=== PATIENT | male | born 1945 | race Hispanic/Latino ===

== ENCOUNTER 2017-12-26 09:32 | Emergency (ER) | payer MEDICARE ==
[~2017-12-26] VITALS: Ht 175.3 cm; Wt 83.0 kg
[2017-12-26 10:39] LABS: BASOPHILS # (AUTO) 0.1 (0.0-0.1); BASOPHILS % 0.7 % (0.0-1.0); EOSINOPHILS # (AUTO) 0.2 (0.0-0.4); HEMATOCRIT 42.7 % (38.2-49.6); HEMOGLOBIN 14.5 g/dL (14.0-18.0); LYMPHOCYTES # (AUTO) 1.8 (1.0-3.2); LYMPHOCYTES % 19.7 % (18.0-39.1); MEAN CORPUSCULAR HEMOGLOBIN 30.5 pg (28-32); MEAN CORPUSCULAR VOLUME 89.7 fL (81-99); MONOCYTES # (AUTO) 0.8 (0.2-0.8); MONOCYTES % 8.4 % (4.4-11.3); NEUTROPHILS # (AUTO) 6.2 (2.1-6.9); NEUTROPHILS % 68.8 % (38.7-80.0); PLATELET COUNT 220 x10e3/uL (140-360); RED BLOOD COUNT 4.76 x10e6/uL (4.3-5.7); RED CELL DISTRIBUTION WIDTH 12.1 % (11.7-14.4)
[2017-12-26] MEDS ORDERED: FISH OIL 1,0001 EAC3 PO (10:50)
[2017-12-26] MEDS ORDERED: LOSARTAN POTASS25 MG PO (10:50)
[2017-12-26] MEDS ORDERED: METFORMIN HCL500 MG PO (10:50)
[2017-12-26] MEDS ORDERED: JANUVIA100 MG PO (10:50)
[2017-12-26] MEDS ORDERED: ATORVASTATIN CA10 MG PO (10:50)
[2017-12-26] MEDS ORDERED: ASPIRIN325 MG PO (10:50)
[2017-12-26 10:51] LABS: INR 0.99; PROTHROMBIN TIME 12.3 seconds (11.9-14.5)
[2017-12-26 10:52] LABS: PARTIAL THROMBOPLASTIN TIME 27.5 seconds (23.8-35.5)
[2017-12-26 11:01] LABS: ALANINE AMINOTRANSFERASE 25 IU/L (0-55); ALBUMIN 4.2 g/dL (3.5-5.0); ALBUMIN/GLOBULIN RATIO 1.2 (0.8-2.0); ALKALINE PHOSPHATASE 95 IU/L (40-150); AMYLASE 109 U/L (25-125); ANION GAP 13.9 mmol/L (8-16); BLOOD UREA NITROGEN 15 mg/dL (7-26); BUN/CREATININE RATIO 14 (6-25); CARBON DIOXIDE 25 mmol/L (22-29); CHLORIDE 105 mmol/L (98-107); CREATINE KINASE 57 IU/L (30-200); CREATININE, SERUM 1.05 mg/dL (0.72-1.25); EST GLOMERULAR FILTRATION RATE > 60 ML/MIN (60-); GLUCOSE 110 mg/dL (74-118); LIPASE 52 U/L (8-78); POTASSIUM 3.9 mmol/L (3.5-5.1); SODIUM 140 mmol/L (136-145)
--- NOTE | 2017-12-26 11:08 | Diagnostic Imaging Report ---
PROCEDURE: A single AP view of the chest. COMPARISON: None. INDICATIONS: EPIGASTRIC DISCOMFORT FINDINGS: Lines/tubes: None. Lungs: Low lung volumes. Mild patchy bibasilar opacities, likely atelectasis. There is no evidence of pneumonia or pulmonary edema. Pleura: There is no pleural effusion or pneumothorax. Heart and mediastinum: The cardiomediastinal silhouette is unremarkable. Bones: No acute bony abnormality. Upper abdomen: No evidence of free air under the hemidiaphragms. IMPRESSION: No acute cardiopulmonary disease. Dictated by: DENISA DEL RIO M.D. on 12/26/2017 at 11:14 Electronically approved by: DENISA DEL RIO M.D. on 12/26/2017 at 11:14
[2017-12-26] MEDS ORDERED: LIDOCAINE VISC 2% SOLN 15 ML UDC PO ONE (11:15)
[2017-12-26] MEDS ORDERED: MAGNESIUM/ALUMINUM/SIMETHICONE 30 ML UDC PO ONE (11:15)
[2017-12-26 13:50] LABS: CREATINE KINASE MB < 1.00 ng/mL (0-4.3)
== END 2017-12-26 14:42 | disposition home or self-care (01) ==
LOC: ER 09:32
DX: R10.13 Epigastric pain (principal); R07.89 Other chest pain; I10 Essential (primary) hypertension; E11.9 Type 2 diabetes mellitus without complications
CPT/HCPCS: 36415; 71045; 80053; 82150; 82550; 82553; 83690; 84484; 85025; 85610; 85730; 93005; 99284

== ENCOUNTER 2020-05-11 22:32 | Emergency (ER) | payer MEDICARE ==
[~2020-05-11] VITALS: Ht 177.8 cm; Wt 86.2 kg
[~2020-05-11 22:32] MED LIST: ASPIRIN325 MG PO; ATORVASTATIN CA10 MG PO; FISH OIL 1,0001 EAC3 PO; JANUVIA100 MG PO; LOSARTAN POTASS25 MG PO; METFORMIN HCL500 MG PO
[2020-05-11 22:53] LABS: BASOPHILS # (AUTO) 0.1 (0.0-0.1); BASOPHILS % 0.6 % (0.0-1.0); EOSINOPHILS # (AUTO) 0.3 (0.0-0.4); EOSINOPHILS % 2.7 % (0.0-6.0); HEMATOCRIT 37.3 % (38.2-49.6); HEMOGLOBIN 12.7 g/dL (14.0-18.0); LYMPHOCYTES # (AUTO) 1.7 (1.0-3.2); LYMPHOCYTES % 18.1 % (18.0-39.1); MEAN CORPUSCULAR HEMOGLOBIN 30.5 pg (28-32); MEAN CORPUSCULAR VOLUME 89.4 fL (81-99); MONOCYTES # (AUTO) 0.7 (0.2-0.8); MONOCYTES % 7.8 % (4.4-11.3); NEUTROPHILS # (AUTO) 6.6 (2.1-6.9); NEUTROPHILS % 70.3 % (38.7-80.0); PLATELET COUNT 200 x10e3/uL (140-360); RED BLOOD COUNT 4.17 x10e6/uL (4.3-5.7); RED CELL DISTRIBUTION WIDTH 11.9 % (11.7-14.4)
[2020-05-11] MEDS ORDERED: ASPIRIN 81 MG CHEW TAB PO ONE (23:00)
[2020-05-11 23:12] LABS: ALANINE AMINOTRANSFERASE 19 IU/L (0-55); ALBUMIN 3.7 g/dL (3.5-5.0); ALBUMIN/GLOBULIN RATIO 1.2 (0.8-2.0); ALKALINE PHOSPHATASE 73 IU/L (40-150); ANION GAP 12.2 mmol/L (8-16); BLOOD UREA NITROGEN 19 mg/dL (7-26); BUN/CREATININE RATIO 20 (6-25); CALCIUM 8.4 mg/dL (8.4-10.2); CARBON DIOXIDE 25 mmol/L (22-29); CHLORIDE 104 mmol/L (98-107); CREATINE KINASE 46 IU/L (30-200); CREATININE, SERUM 0.95 mg/dL (0.72-1.25); EST GLOMERULAR FILTRATION RATE > 60 ML/MIN (60-); GLUCOSE 182 mg/dL (74-118); POTASSIUM 4.2 mmol/L (3.5-5.1); SODIUM 137 mmol/L (136-145)
[2020-05-11 23:49] VITALS: BP 143/86
== END 2020-05-11 23:45 | disposition home or self-care (01) ==
LOC: ER 22:49
DX: I10 Essential (primary) hypertension (principal); R42 Dizziness and giddiness; E11.65 Type 2 diabetes mellitus with hyperglycemia; E78.5 Hyperlipidemia, unspecified
CPT/HCPCS: 36415; 80053; 82550; 82553; 84484; 85025; 93005; 99283

== ENCOUNTER 2021-04-17 09:55 | Observation (INO) | payer MEDICARE ==
[~2021-04-17] VITALS: Ht 177.8 cm; Wt 86.2 kg
[2021-04-17] MEDS: FAMOTIDINE 20 MG/2 ML VIAL IV SCH ×2 (00:45→12:08)
[2021-04-17 10:30] LABS: BASOPHILS # (AUTO) 0.1 (0.0-0.1); BASOPHILS % 0.5 % (0.0-1.0); EOSINOPHILS # (AUTO) 0.1 (0.0-0.4); EOSINOPHILS % 1.4 % (0.0-6.0); HEMATOCRIT 42.3 % (38.2-49.6); HEMOGLOBIN 14.1 g/dL (14.0-18.0); LYMPHOCYTES % 21.6 % (18.0-39.1); MEAN CORPUSCULAR HEMOGLOBIN 30.7 pg (28-32); MEAN CORPUSCULAR HGB CONC 33.3 g/dL (31-35); MEAN CORPUSCULAR VOLUME 92.2 fL (81-99); MONOCYTES # (AUTO) 0.7 (0.2-0.8); MONOCYTES % 7.7 % (4.4-11.3); NEUTROPHILS # (AUTO) 6.4 (2.1-6.9); NEUTROPHILS % 68.6 % (38.7-80.0); PLATELET COUNT 244 x10e3/uL (140-360); RED BLOOD COUNT 4.59 x10e6/uL (4.3-5.7); RED CELL DISTRIBUTION WIDTH 12.2 % (11.7-14.4)
[2021-04-17 10:37] LABS: INR 0.93; PARTIAL THROMBOPLASTIN TIME 28.2 seconds (23.8-35.5); PROTHROMBIN TIME 13.2 seconds (11.9-14.5)
[2021-04-17 10:44] LABS: ALBUMIN 3.9 g/dL (3.5-5.0); ALBUMIN/GLOBULIN RATIO 1.3 (0.8-2.0); CALCIUM 9.2 mg/dL (8.4-10.2); CREATININE, SERUM 1.34 mg/dL (0.72-1.25)
[2021-04-17] MEDS ORDERED: ONDANSETRON HCL INJ 2MG/ML 2ML 2 MG/ML VIAL IV PRN (11:45)
[2021-04-17] MEDS ORDERED: ACETAMINOPHEN 325 MG TAB PO PRN (12:30)
[2021-04-17 13:53] VITALS: BP 152/80
[2021-04-17] MEDS ORDERED: METOPROLOL TARTRATE 50 MG TAB PO ONE (14:45)
[2021-04-17] MEDS ORDERED: AMIODARONE HCL 200 MG TAB PO ONE (15:00)
[2021-04-17] MEDS ORDERED: ENOXAPARIN INJ 80 MG/0.8 ML SYR SC STA (15:03)
[2021-04-17 16:16] VITALS: BP 118/81
[2021-04-17 16:35] VITALS: BP 118/81
[2021-04-17 16:36] VITALS: BP 118/81
[2021-04-17] MEDS ORDERED: METFORMIN HCL 500 MG TAB PO SCH (17:00)
[2021-04-17] MEDS ORDERED: DEXTROSE 50% SYRINGE 50 ML IV PRN (17:45)
[2021-04-17] MEDS: AMIODARONE HCL 200 MG TAB PO SCH (17:48)
[2021-04-17] MEDS: METOPROLOL TARTRATE 25 MG TAB PO SCH (17:48)
[2021-04-17] MEDS ORDERED: SODIUM CHLORIDE 0.9% 250ML 250 ML ONE (17:54)
[2021-04-17 19:24] LABS: CREATINE KINASE MB 0.7 ng/mL (0-5.0)
[2021-04-17 21:00] VITALS: BP 118/81
[2021-04-17] MEDS ORDERED: ATORVASTATIN 10 MG TAB PO SCH (21:00)
[2021-04-17 21:05] VITALS: BP 115/70
[2021-04-17] MEDS: INSULIN REGULAR, HUMAN 100 UNIT/1 ML SQ SCH (21:42)
[2021-04-18] VITALS: BP 130/79
[2021-04-18 02:01] LABS: CREATINE KINASE MB 0.6 ng/mL (0-5.0)
[2021-04-18 04:00] VITALS: BP 115/77
[2021-04-18 05:18] LABS: BASOPHILS # (AUTO) 0.1 (0.0-0.1); BASOPHILS % 0.8 % (0.0-1.0); EOSINOPHILS # (AUTO) 0.2 (0.0-0.4); EOSINOPHILS % 3.1 % (0.0-6.0); HEMATOCRIT 37.4 % (38.2-49.6); HEMOGLOBIN 12.3 g/dL (14.0-18.0); LYMPHOCYTES # (AUTO) 2.2 (1.0-3.2); LYMPHOCYTES % 29.5 % (18.0-39.1); MEAN CORPUSCULAR HEMOGLOBIN 30.3 pg (28-32); MEAN CORPUSCULAR HGB CONC 32.9 g/dL (31-35); MEAN CORPUSCULAR VOLUME 92.1 fL (81-99); MONOCYTES # (AUTO) 0.7 (0.2-0.8); MONOCYTES % 9.8 % (4.4-11.3); NEUTROPHILS # (AUTO) 4.2 (2.1-6.9); NEUTROPHILS % 56.4 % (38.7-80.0); PLATELET COUNT 206 x10e3/uL (140-360); RED BLOOD COUNT 4.06 x10e6/uL (4.3-5.7); RED CELL DISTRIBUTION WIDTH 12.1 % (11.7-14.4)
[2021-04-18] MEDS: METOPROLOL TARTRATE 25 MG TAB PO SCH ×2 (05:34)
[2021-04-18 05:50] LABS: ALBUMIN 3.4 g/dL (3.5-5.0); ALBUMIN/GLOBULIN RATIO 1.3 (0.8-2.0); ANION GAP 11.1 mmol/L (8-16); CALCIUM 8.5 mg/dL (8.4-10.2); CHOL/HDL RATIO 4.9 (3.9-4.7); CREATININE, SERUM 1.22 mg/dL (0.72-1.25); POTASSIUM 4.1 mmol/L (3.5-5.1)
[2021-04-18] MEDS: INSULIN REGULAR, HUMAN 100 UNIT/1 ML SQ SCH ×3 (07:30→16:30)
[2021-04-18 08:37] VITALS: BP 123/79
[2021-04-18 08:42] VITALS: BP 123/79
[2021-04-18 08:43] VITALS: BP 123/79
[2021-04-18] MEDS ORDERED: ASPIRIN 81 MG ENTERIC COATED PO SCH (09:00)
[2021-04-18] MEDS ORDERED: OMEGA 3 POLYUNSAT FATTY ACIDS 1000 MG SOFTGEL PO SCH (09:00)
[2021-04-18] MEDS ORDERED: LOSARTAN POTASSIUM 25 MG TAB PO SCH (09:00)
[2021-04-18] MEDS ORDERED: ASPIRIN 325 MG TAB PO SCH (09:00)
[2021-04-18] MEDS ORDERED: SITAGLIPTIN 100 MG TAB PO SCH (09:00)
[2021-04-18] MEDS: AMIODARONE HCL 200 MG TAB PO SCH (09:00)
[2021-04-18] MEDS ORDERED: MIDAZOLAM HCL 2 MG/2 ML VIAL ONE (09:11)
[2021-04-18] MEDS ORDERED: FENTANYL CITRATE/PF 100MCG/2 ML INJ ONE (09:11)
[2021-04-18] MEDS ORDERED: HEPARIN SOD (PORCINE) 1000 UNIT/ML 30ML ONE (09:11)
[2021-04-18] MEDS ORDERED: HEPARIN SOD/SOD CHLORIDE 2,000 ML ONE (09:12)
[2021-04-18] MEDS ORDERED: NITROGLYCERIN/D5W 200 MCG/ML 250 ML ONE (09:12)
[2021-04-18] MEDS ORDERED: SODIUM CHLORIDE 0.9% 1000ML 1,000 ML ONE (09:12)
[2021-04-18] MEDS ORDERED: IOPAMIDOL 370 MG/ML 200 ML INFUS..BTL INJ ONE (09:12)
[2021-04-18] MEDS ORDERED: LIDOCAINE HCL 2% LOCAL 20 ML VIAL ONE (09:12)
[2021-04-18] MEDS: SODIUM CHLORIDE 0.9% 1000ML 1,000 ML IV SCH ×2 (09:29→15:30)
[2021-04-18] MEDS ORDERED: VERAPAMIL HCL 2.5 MG/ML 2 ML VIAL ONE (09:53)
[2021-04-18] MEDS: FAMOTIDINE 20 MG/2 ML VIAL IV SCH (11:45)
[2021-04-18 12:19] VITALS: BP 123/79
[2021-04-18] MEDS ORDERED: MULTAQ400 MG PO ×2 (13:48→13:58)
[2021-04-18] MEDS ORDERED: ELIQUIS5 MG PO ×2 (13:48→13:58)
[2021-04-18] MEDS ORDERED: LOPRESSOR25 MG PO ×2 (13:48→13:58)
[2021-04-18 14:16] LABS: CREATINE KINASE MB 0.6 ng/mL (0-5.0)
[2021-04-18] MEDS ORDERED: METOPROLOL TARTRATE 25 MG TAB PO SCH (17:00)
== END 2021-04-18 17:31 | disposition home or self-care (01) ==
LOC: ER 10:08 → ERHOLD 11:38 → MED/SURG 13:29
PROVIDERS: ADMIT Internal Medicine; ATTEND Internal Medicine
DX: I48.0 Paroxysmal atrial fibrillation (principal); I20.0 Unstable angina; N17.9 Acute kidney failure, unspecified; E78.00 Pure hypercholesterolemia, unspecified; E11.9 Type 2 diabetes mellitus without complications; E78.5 Hyperlipidemia, unspecified; Z20.822 Contact with and (suspected) exposure to COVID-19; I10 Essential (primary) hypertension
CPT/HCPCS: 36415; 71045; 80053 ×2; 80061; 82550 ×2; 82553 ×2; 82948 ×2; 83735; 84443; 84484 ×2; 85025 ×2; 85610; 85730; 93005 ×2; 93306; 93458; 94799 ×2; 99284; C1887 ×2; C1894; G0378 ×2; J1644; J1817; J2001; J2250; J3010; J7030; J7050; Q9967; U0002